=== PATIENT | male | born 1985 | race Two or more races ===

== ENCOUNTER 2019-07-19 10:01 | Emergency (ER) | payer MEDICAID ==
[~2019-07-19] VITALS: Ht 175.3 cm; Wt 120.7 kg
[2019-07-19] MEDS ORDERED: cloNIDine HCL 0.1 MG TAB ONE (11:37)
[2019-07-19] MEDS ORDERED: cloNIDine HCL 0.1 MG TAB PO ONE (11:45)
[2019-07-19] MEDS ORDERED: CLINDAMYCIN HCL 150 MG CAP PO ONE (12:00)
[2019-07-19 12:27] LABS: Basophils # (auto) 0.1 uL; Basophils % (auto) 0.8 % (0.0-2.0); Eosinophils # (auto) 0.1 uL; Eosinophils % (auto) 1.4 % (0.0-7.0); Hematocrit 44.4 % (41.0-53.0); Hemoglobin 15.8 g/dL (13.5-17.5); Lymphocytes # (auto) 2.1 uL; Lymphocytes % (auto) 27.9 % (10.0-50.0); Mean Corpuscular Hemoglobin 31.6 pg (28.0-32.0); Mean Corpuscular Hgb Conc. 35.5 g/dL (32.0-36.0); Mean Corpuscular Volume 89.1 fL (80.0-100.0); Monocytes # (auto) 0.7 uL; Monocytes % (auto) 9.4 % (0.0-12.0); Neutrophils # (auto) 4.5 uL; Neutrophils % (auto) 60.5 % (37.0-80.0); Nucleated Red Blood Cells % 0.1 %; Platelet Count (auto) 208 10^3/uL (140-450); Red Blood Cells 4.99 10^6/uL (4.5-5.90); Red Cell Distribution Width 12.8 % (11.8-14.3); White Blood Cell 7.4 10^3/uL (4.4-10.8)
[2019-07-19 12:41] LABS: Albumin 3.8 g/dL (3.4-5.0); Calcium 8.4 mg/dL (8.5-10.1); Potassium 3.8 mmol/L (3.5-5.1)
[2019-07-19 12:46] LABS: Total Protein 6.9 g/dL (6.4-8.2)
[2019-07-19] MEDS ORDERED: FAMOTIDINE 20 MG TAB PO ONE (13:30)
[2019-07-19 14:05] VITALS: BP 200/122
== END 2019-07-19 14:20 | disposition home or self-care (01) ==
LOC: ER 10:09
DX: J02.9 Acute pharyngitis, unspecified (principal); I10 Essential (primary) hypertension
CPT/HCPCS: 36415; 80053; 82962; 84484; 85025